=== PATIENT | male | born 1955 | race Caucasian/White ===

== ENCOUNTER 2019-03-06 15:22 | Inpatient (IN) | payer OTHER ==
[2019-03-06] MEDS ORDERED: ONDANSETRON 4 MG/2 ML VIAL IVPB ONE (15:33)
[2019-03-06] MEDS ORDERED: SODIUM CHLORIDE 1,000 ML IV ONE (15:33)
[2019-03-06] MEDS ORDERED: ONDANSETRON 4 MG/2 ML VIAL ONE (15:40)
[2019-03-06 16:04] LABS: BASO % 0.6 % (0-2.0); EOS % 1.5 % (0-4.5); HEMATOCRIT 21.5 % (35.4-49); HEMOGLOBIN 7.1 GM/dl (11.7-16.9); LYMPH % 17.9 % (8-40); MCH 29.2 pg (25.7-33.7); MCHC 32.9 g/dl (32.0-35.9); MEAN CELL VOLUME 88.7 fl (80-96); MEAN PLT VOLUME 8.9 fl (7.5-11.1); MONO % 6.8 % (3.8-10.2); NEUT % 73.2 % (42.8-82.8); PLATELET COUNT 258 K/MM3 (134-434); RBC 2.42 M/mm3 (4.00-5.60); RDW 13.1 % (11.9-15.9); WHITE BLOOD COUNT 8.7 K/mm3 (4.0-10.8)
[2019-03-06 16:13] LABS: ALBUMIN 3.6 g/dl (3.4-5.0); ALK PHOS 64 U/L (45-117); ANION GAP 10 MMOL/L (8-16); BILIRUBIN,TOTAL 0.5 mg/dl (0.2-1); BLOOD UREA NITROGEN 40 mg/dl (7-18); CALCIUM 8.6 mg/dl (8.5-10); CHLORIDE 109 mmol/L (98-107); CO2 22 mmol/L (21-32); CREATININE 1.1 mg/dl (0.55-1.3); GLUCOSE,RANDOM 126 mg/dl (74-106); MAGNESIUM 2.3 mg/dL (1.8-2.4); POTASSIUM 4.4 mmol/L (3.5-5.1); SGOT/AST 29 U/L (15-37); SGPT/ALT 44 U/L (13-61); SODIUM 141 mmol/L (136-145)
[2019-03-06 16:35] LABS: INR 1.53 (0.82-1.09)
--- NOTE | 2019-03-06 16:50 | PDOC ---
Documentation entered by Conchita Beatty SCRIBE, acting as scribe for Alessandro Estrada MD. Alessandro Estrada MD: This documentation has been prepared by the alizeibeRogerio Lincy, SCRIBE, under my direction and personally reviewed by me in its entirety. I confirm that the documentation accurately reflects all work, treatment, procedures, and medical decision making performed by me. History of Present Illness - General Chief Complaint: Vomiting/Diarrhea Stated Complaint: YESTERDAY N/V/D CHILLS History Source: Patient Exam Limitations: No Limitations - History of Present Illness Travel History: Yes (MD Lara) Initial Comments: 03/06/19 15:27 The patient is a 63-year-old male with past medical history significant for CML (in remission, on Tasigna), HTN, HLD, GERD, Afib (on Eliquis) and recent surgery for spinal fusion (February 05) presents to the emergency department with a complaint of vomiting/diarrhea on sunday night but has been feeling extremely fatigued since then with exertional sob/chest pressure. The patient reports the symptoms began Sunday night into Sunday when he in [place] visiting. The patient reports he had an onset of neck pain (to the incision site thats healing) that goes to the chest, thats pressure in quality , aggravated with swallowing, walking or deep breathing, nausea with multiple episodes of nonbloody-bilious vomiting and melanotic diarrhea. The patient described diarrhea as soft, tarry/pasty in quality. The patient reports secondary to the symptoms his has to pick him up from the hotel. The patient reports he was picked up at 2:00 pm yesterday, since then he hasnt had any episodes of diarrhea but a single episode of emesis. The patient reports since returning home hes been feeling weak and fatigue, states she had to assist him from the car into the house, and since then hes been needing assisting with going to the bathroom or standing up. The patient reports an additional concern of shortness of breath thats aggravated with the exertion of any sorts and cold sweats. The patient reports chronic left arm pain and neck pain for which he has been taking alleve almost every day for the past month. Denies discharge from the site. Denies fever, chills, headache, urinary symptoms or leg swelling. Allergies: amoxicillin, amoxicillin acid and doxycycline Social history: former smoker, with 20 pack year history, social alcohol user ( 1 wine/night), denies the use of recreational drugs. Surgical history: Appendectomy and L. elbow ORIF. PCP: Dr. Carlisle. Cardiology: Dr. Sadler Oncology: Dr. Cintron ([facility]) Past History - Past Medical History Allergies/Adverse Reactions: Allergies Allergy/AdvReac Type Severity Reaction Status Date / Time amoxicillin [From Augmentin] Allergy Intermediate Nausea Verified 03/06/19 15:30 clavulanic acid Allergy Intermediate Nausea Verified 03/06/19 15:30 [From Augmentin] doxycycline Allergy Intermediate Nausea Verified 03/06/19 15:30 nifedipine Allergy Mild Nausea Verified 03/06/19 16:51 Home Medications: Ambulatory Orders Nilotinib HCl [Tasigna] 400 mg PO BID 09/19/13 Cyclosporine [Restasis] 1 each OP DAILY 06/05/18 Hypromellose/Pf [Retaine Hpmc 0.3% Eye Drops] 1 drop OP DAILY 06/05/18 Apixaban [Eliquis -] 5 mg PO BID #60 tablet 06/06/18 Metoprolol Succinate [Toprol XL -] 25 mg PO BID #60 tab.sr.24h 06/06/18 Rosuvastatin [Crestor -] 10 mg PO DAILY #30 tablet 06/06/18 Anemia: No Asthma: No Cancer: Yes (LEUKEMIA (CML) IN REMISSION) Cardiac Disorders: No CVA: No COPD: No CHF: No Dementia: No Diabetes: No GI Disorders: Yes (GERD) Disorders: No HTN: Yes Hypercholesterolemia: Yes Liver Disease: No Seizures: No Thyroid Disease: No - Surgical History Abdominal Surgery: Yes Appendectomy: Yes Cardiac Surgery: No Cholecystectomy: No Lung Surgery: No Neurologic Surgery: No Orthopedic Surgery: Yes (FX LEFT ARM) - Suicide/Smoking/Psychosocial Hx Smoking History: Former smoker Have you smoked in the past 12 months: No Number of Cigarettes Smoked Daily: 0 If you are a former smoker, when did you quit?: 1993 Cigars Per Day: 1 Hx Alcohol Use: Yes (RARE) Drug/Substance Use Hx: No Substance Use Type: Alcohol Hx Substance Use Treatment: No Review of Systems - Review of Systems Able to Perform ROS?: Yes Comments:: 03/06/19 16:28 Constitutional - patient reports weakness and fatigue. Denies fever or chills. HEENT: denies vision changes, sore throat Respiratory: +shortness of breath. Denies cough or hemoptysis Cardiac: +chest pain, denies palpitations, lightheadedness, leg swelling Abd/GI: +nausea, vomiting, diarrhea, and melena. Denies hematochezia or abdominal pain. : denies dysuria, frequency, discharge Musculoskeletal - +neck pain and chronic left arm pain. denies back pain, joint swelling skin - denies bruising, erythema, rash neurological: denies headache, numbness, focal weakness, tingling, ataxia, weakness hematologic: denies anemia, easy bruising, easy bleeding *Physical Exam - Vital Signs Last Vital Signs Temp Pulse Resp BP Pulse Ox 97.4 F L 89 16 148/80 100 03/06/19 15:23 03/06/19 15:33 03/06/19 15:33 03/06/19 15:23 03/06/19 15:33 - Physical Exam Comments: 03/06/19 16:48 GENERAL: The patient is awake, alert, and fully oriented, Nontoxic - in no acute distress. HEAD: Normocephalic, atraumatic. EYES: extraocular movements intact, sclera anicteric, conjunctiva clear. ENT: Normal voice, Moist mucous membranes. NECK: Normal range of motion, supple without lymphadenopathy, JVD, or masses. LUNGS: Breath sounds equal, clear to auscultation bilaterally. No wheezes, no crackles, no rales. HEART: Regular rate and rhythm, normal S1 and S2 without murmur, rub or gallop. ABDOMEN: Soft, nontender, normoactive bowel sounds. No guarding, no rebound. No masses. Rectal exam: Dark colored stool. EXTREMITIES: Normal range of motion, no edema. No clubbing or cyanosis. No cords, erythema, or tenderness. NEUROLOGICAL: No facial asymmetry, Normal speech, normal gait. PSYCH: Normal mood, normal affect. SKIN: +pale appearing. Warm, Dry, normal turgor, no rashes or lesions noted. Heart Score/ECG Review - ECG Impressions Comment:: 03/06/19 16:24 Twelve-lead EKG was performed and reviewed by me. There is normal sinus rhythm with a normal rate. rate of 81 The axis is normal. The intervals are normal. There is normal R wave progression There are no ST or T wave abnormalities. Impression: Normal twelve-lead EKG ED Treatment Course - LABORATORY CBC & Chemistry Diagram: 03/06/19 15:50 03/06/19 15:50 - ADDITIONAL ORDERS Additional order review: Laboratory Results 03/06/19 15:50 Sodium 141 Potassium 4.4 Chloride 109 H Carbon Dioxide 22 Anion Gap 10 BUN 40 H Creatinine 1.1 Creat Clearance w eGFR 68.05 Random Glucose 126 H Calcium 8.6 Magnesium 2.3 Total Bilirubin 0.5 AST 29 ALT 44 Alkaline Phosphatase 64 Total Protein 6.0 L Albumin 3.6 03/06/19 15:50 RBC 2.42 L MCV 88.7 MCHC 32.9 RDW 13.1 MPV 8.9 Neutrophils % 73.2 Lymphocytes % 17.9 Monocytes % 6.8 Eosinophils % 1.5 Basophils % 0.6 - Medications Given in the ED: ED Medications Discontinued Medications Generic Name Dose Route Start Last Admin Trade Name Freq PRN Reason Stop Dose Admin Ondansetron HCl 4 mg 03/06/19 15:33 03/06/19 15:45 Zofran Injection IVPB 03/06/19 15:34 4 mg ONCE ONE Administration Medical Decision Making - Medical Decision Making 03/06/19 16:16 63y M hx of CML, HTN, HLD, GERD, AFib on eli presents with complaint of vomiting/diarrhea on sunday-sun. has since resolved but pt has been feeling extremely weak with exertional dyspnea and chest pressure. no prior hx of gib in the past. no pain currently last episode of diarrhea was sun. on exam pt in no distress abd soft notnender vitals wnl concern for possible GIB - will send labs, stool guaiac will send trop to screen for PR pts labs noted for HBG of 7.1 down from 12.7 on january 2019 - will transfuse as pt is symptmoatic w his ty and cp anticipate admissin and will dw GI 03/06/19 17:[address] Arroyo, spoke with the service, waiting for a call back from Dr. Arroyo. 03/06/16 17:[address] Arroyo. 03/06/19 17:[address] Iverson accepted to med/surg for further management of GIB wll start protonix and hold his eliquis 03/06/19 17:[address] arroyo agree with our magneemnt management. will see patient Case discussed in detail with admitting physician including history, physical exam and ancillary studies. Admitting physician has assumed care for the patient, will follow all pending diagnostics and will complete the evaluation and treatment. *DC/Admit/Observation/Transfer Diagnosis at time of Disposition: Anemia Qualifiers: Anemia type: other cause Other causes of anemia: other cause, not classified Qualified Code(s): D64.89 - Other specified anemias GIB (gastrointestinal bleeding) Qualifiers: GI bleed type/associated pathology: melena Qualified Code(s): K92.1 - Melena - Discharge Dispostion Condition at time of disposition: Stable Decision to Admit order: Yes - Referrals Referrals: Bennie Carlisle MD [Primary Care Provider] - - Patient Instructions - Post Discharge Activity
[2019-03-06] MEDS ORDERED: PANTOPRAZOLE SODIUM 80 MG in SODIUM CHLORIDE 100 ML IVPB ONE (17:12)
[2019-03-06] MEDS ORDERED: PANTOPRAZOLE SODIUM 40 MG VIAL ONE (17:17)
[2019-03-06] MEDS ORDERED: ONDANSETRON 4 MG/2 ML VIAL IVPUSH PRN (17:46)
[2019-03-06] MEDS: PANTOPRAZOLE SODIUM 80 MG in SODIUM CHLORIDE 100 ML IVPB SCH (18:00)
[2019-03-06] MEDS: SODIUM CHLORIDE 1,000 ML IV SCH (18:00)
[2019-03-06 18:29] VITALS: BMI 25.4
--- NOTE | 2019-03-06 19:45 | HP ---
CHIEF COMPLAINT: vomiting/black stools, extreme fatigue PCP: Dr. Carlisle. HISTORY OF PRESENT ILLNESS: 63-year-old male c/o generalized weakness, malaise, fatigue, black stools since this sunday morning. He also mentioned some nausea and minimal vomiting- (clear ). Patient denied any bright red blood in vomit and stool. Patient mentioned having colonoscopy performed about [address] Fields. ER course was notable for: (1) zofran (2) IV fluids (3) protonix Recent Travel: no PAST MEDICAL HISTORY: HTN, HLD, GERD, CML (in remission, on Tasigna), afib- on Eliquis , PAST SURGICAL HISTORY: appendectomy L elbow ORIF surgery for spinal fusion (February 05) Social History: Smoking: quit 20 years ago, 20pack year history Alcohol: 1 glass wine/day Drugs: pt denies Family History: father s/p CT in his 40s, alive mother in her 30s, leukemia 3 brothers and one sister alive and well Allergies amoxicillin [From Augmentin] Allergy (Intermediate, Verified 03/06/19 15:30) Nausea clavulanic acid [From Augmentin] Allergy (Intermediate, Verified 03/06/19 15:30) Nausea doxycycline Allergy (Intermediate, Verified 03/06/19 15:30) Nausea nifedipine Allergy (Mild, Verified 03/06/19 16:51) Nausea HOME MEDICATIONS: Home Medications Medication Instructions Recorded Nilotinib HCl [Tasigna] 400 mg PO BID 09/19/13 Cyclosporine [Restasis] 1 each OP DAILY 06/05/18 Hypromellose/Pf [Retaine Hpmc 0.3% 1 drop OP DAILY 06/05/18 Eye Drops] Apixaban [Eliquis -] 5 mg PO BID #60 tablet 06/06/18 Metoprolol Succinate [Toprol XL -] 25 mg PO BID #60 tab.sr.24h 06/06/18 Rosuvastatin [Crestor -] 10 mg PO DAILY #30 tablet 06/06/18 REVIEW OF SYSTEMS CONSTITUTIONAL: Absent: fever, chills, diaphoresis,, malaise, loss of appetite, weight change present- generalized weakness HEENT: Absent: rhinorrhea, nasal congestion, throat pain, throat swelling, difficulty swallowing, mouth swelling, ear pain, eye pain, visual changes CARDIOVASCULAR: Absent: chest pain, syncope, palpitations, irregular heart rate, lightheadedness , peripheral edema RESPIRATORY: Absent: cough, , orthopnea, wheezing, stridor, hemoptysis present- shortness of breath, dyspnea with exertion GASTROINTESTINAL: Absent: abdominal pain, abdominal distension, , constipation, melena, hematochezia present- nausea, vomiting, diarrhea GENITOURINARY: Absent: dysuria, frequency, urgency, hesitancy, hematuria, flank pain, genital pain MUSCULOSKELETAL: Absent: myalgia, arthralgia, joint swelling, back pain, neck pain SKIN: Absent: rash, itching, pallor HEMATOLOGIC/IMMUNOLOGIC: Absent: easy bleeding, easy bruising, lymphadenopathy, frequent infections ENDOCRINE: Absent: unexplained weight gain, unexplained weight loss, heat intolerance, cold intolerance NEUROLOGIC: Absent: headache, focal weakness or paresthesias, dizziness, unsteady gait, seizure, mental status changes, bladder or bowel incontinence PSYCHIATRIC: Absent: anxiety, depression, suicidal or homicidal ideation, hallucinations. PHYSICAL EXAMINATION Vital Signs - 24 hr 03/06/19 03/06/19 03/06/19 15:23 15:33 16:29 Temperature 97.4 F L Pulse Rate 91 H Pulse Rate [ 89 86 Apical] Respiratory 16 16 16 Rate Blood Pressure 148/80 Blood Pressure 139/64 [Right Arm] O2 Sat by Pulse 99 100 99 Oximetry (%) 03/06/19 03/06/19 03/06/19 17:00 18:15 18:25 Temperature 98.3 F 97.9 F 97.9 F Pulse Rate 78 78 Pulse Rate [ 84 Apical] Respiratory 16 18 18 Rate Blood Pressure 158/62 158/62 Blood Pressure 125/61 [Right Arm] O2 Sat by Pulse 99 100 Oximetry (%) GENERAL: Awake, alert, and fully oriented, in no acute distress. HEAD: Normal with no signs of trauma. EYES: Pupils equal, round and reactive to light, extraocular movements intact, scleral pallor+ EARS, NOSE, THROAT: Ears normal, nares patent, oropharynx clear without exudates. Moist mucous membranes. NECK: Normal range of motion, supple without lymphadenopathy, JVD, or masses. LUNGS: Breath sounds equal, clear to auscultation bilaterally. No wheezes, and no crackles. No accessory muscle use. HEART: Regular rate and rhythm, normal S1 and S2 without murmur, rub or gallop. ABDOMEN: Soft, nontender, not distended, normoactive bowel sounds, no guarding, no rebound, no masses. MUSCULOSKELETAL: Normal range of motion at all joints. No bony deformities or tenderness. No CVA tenderness. UPPER EXTREMITIES: 2+ pulses, warm, well-perfused. No cyanosis. No clubbing. No peripheral edema. LOWER EXTREMITIES: 2+ pulses, warm, well-perfused. No calf tenderness. No peripheral edema. NEUROLOGICAL: Cranial nerves II-XII intact. Normal speech. PSYCHIATRIC: Cooperative. Good eye contact. Appropriate mood and affect. SKIN: Warm, dry, normal turgor, no rashes or lesions noted, normal capillary refill. PAtient refused Rectal exam at this time. Laboratory Results - last 24 hr 03/06/19 03/06/19 03/06/19 15:50 15:50 16:20 WBC 8.7 RBC 2.42 L Hgb 7.1 L Hct 21.5 L D MCV 88.7 MCH 29.2 MCHC 32.9 RDW 13.1 Plt Count 258 MPV 8.9 Absolute Neuts (auto) 6.3 Neutrophils % 73.2 Lymphocytes % 17.9 Monocytes % 6.8 Eosinophils % 1.5 Basophils % 0.6 PT with INR INR Sodium 141 Potassium 4.4 Chloride 109 H Carbon Dioxide 22 Anion Gap 10 BUN 40 H Creatinine 1.1 Creat Clearance w eGFR 68.05 Random Glucose 126 H Calcium 8.6 Magnesium 2.3 Total Bilirubin 0.5 AST 29 ALT 44 Alkaline Phosphatase 64 Creatine Kinase Troponin I < 0.03 Total Protein 6.0 L Albumin 3.6 Stool Occult Blood Blood Type Antibody Screen Crossmatch 03/06/19 03/06/19 03/06/19 16:20 16:20 16:20 WBC RBC Hgb Hct MCV MCH MCHC RDW Plt Count MPV Absolute Neuts (auto) Neutrophils % Lymphocytes % Monocytes % Eosinophils % Basophils % PT with INR INR Sodium Potassium Chloride Carbon Dioxide Anion Gap BUN Creatinine Creat Clearance w eGFR Random Glucose Calcium Magnesium Total Bilirubin AST ALT Alkaline Phosphatase Creatine Kinase 50 Troponin I Total Protein Albumin Stool Occult Blood Positive Blood Type B POSITIVE Antibody Screen Negative Crossmatch See Detail 03/06/19 03/06/19 16:20 18:30 WBC RBC Hgb Hct MCV MCH MCHC RDW Plt Count MPV Absolute Neuts (auto) Neutrophils % Lymphocytes % Monocytes % Eosinophils % Basophils % PT with INR 17.0 H INR 1.53 H Sodium Potassium Chloride Carbon Dioxide Anion Gap BUN Creatinine Creat Clearance w eGFR Random Glucose Calcium Magnesium Total Bilirubin AST ALT Alkaline Phosphatase Creatine Kinase Troponin I Total Protein Albumin Stool Occult Blood Blood Type B POSITIVE Antibody Screen Crossmatch cxr reviewed ASSESSMENT/PLAN: #Severe symptomatic anemia- likely from upper GI bleed- positive FOBT, taking apixaban which increases chances for bleed. Patient currently hemodynamically stable. -med/surg -NPO -protonix 80mg po given -IV fluid hydration -monitor for bleed -monitor VS q4hrs -hold apixaban -avoid ASA and heparin -ordered 2 PRBC -will recheck CBC after 2nd PRBC completion -GI consulted- Dr. Fields #HTN - slightly uncontrolled -c/w home dose Toprolol for now - can titrate prn #Afib - rate controlled -will hold apixaban in light of suspected GI bleed -can c/w home dose toprolol for rate control #CML- in remission -will monitor CBC -c/w home dose Nilotinib #DVT ppx -scds Visit type - Emergency Visit Emergency Visit: Yes ED Registration Date: 03/06/19 Care time: The patient presented to the Emergency Department on the above date and was hospitalized for further evaluation of their emergent condition. - New Patient This patient is new to me today: Yes Date on this admission: 03/06/19 - Critical Care Critical Care patient: No
[2019-03-06] MEDS: morphine CARPU-JECT 2 MG/1 ML DISP.SYRIN IVPUSH PRN (20:21)
[2019-03-06] MEDS: ROSUVASTATIN CA 10 MG TABLET (FP) PO SCH (21:32)
[2019-03-06] MEDS: metoPROLOL SUCCINATE 25 MG TAB.SR.24H (FP) PO SCH (21:32)
[2019-03-06] MEDS ORDERED: NILOTINIB HCL 400 MG PO SCH (22:00)
[2019-03-07] MEDS: morphine CARPU-JECT 2 MG/1 ML DISP.SYRIN IVPUSH PRN ×2 (00:11→15:31)
[2019-03-07] MEDS: PANTOPRAZOLE SODIUM 80 MG in SODIUM CHLORIDE 100 ML IVPB SCH (06:35)
[2019-03-07 07:27] LABS: HEMATOCRIT 25.2 % (35.4-49); HEMOGLOBIN 8.2 GM/dl (11.7-16.9); MCHC 32.7 g/dl (32.0-35.9); MEAN CELL VOLUME 88.8 fl (80-96); MEAN PLT VOLUME 8.5 fl (7.5-11.1); PLATELET COUNT 169 K/MM3 (134-434); RBC 2.84 M/mm3 (4.00-5.60); RDW 13.1 % (11.9-15.9); WHITE BLOOD COUNT 5.9 K/mm3 (4.0-10.8)
[2019-03-07 07:32] LABS: ANION GAP 6 MMOL/L (8-16); BLOOD UREA NITROGEN 23 mg/dl (7-18); CALCIUM 7.7 mg/dl (8.5-10); CHLORIDE 112 mmol/L (98-107); CO2 22 mmol/L (21-32); CREATININE 0.9 mg/dl (0.55-1.3); GLUCOSE,RANDOM 110 mg/dl (74-106); POTASSIUM 3.9 mmol/L (3.5-5.1); SODIUM 140 mmol/L (136-145)
[2019-03-07] MEDS ORDERED: PATIENT'S OWN MEDICATION (NON-FORMULARY) (Cyclosporine [Restasis] 1 EACH) OP SCH (10:00)
[2019-03-07] MEDS ORDERED: ROSUVASTATIN CA 10 MG TABLET (FP) PO SCH (10:00)
--- NOTE | 2019-03-07 10:48 | PN ---
Physical Exam: SUBJECTIVE: Patient seen and examined at bedside. Feels less fatigued since blood transfusion last night. Denies pain. OBJECTIVE: Vital Signs Period Temp Pulse Resp BP Sys/Valdivia Pulse Ox Last 24 Hr 97.4 F-98.3 F 59-91 16-18 122-158/56-80 96-100 GENERAL: The patient is awake, alert, and fully oriented, in no acute distress. Weak appearing. LUNGS: Breath sounds equal, clear to auscultation bilaterally, no wheezes, no crackles, no accessory muscle use. HEART: Regular rate and rhythm, S1, S2 ABDOMEN: Soft, nontender, nondistended, normoactive bowel sounds EXTREMITIES: 2+ pulses, warm, well-perfused, no edema. NEUROLOGICAL: Cranial nerves II through XII grossly intact. Normal speech, gait not observed. Laboratory Results - last 24 hr 03/06/19 03/06/19 03/06/19 15:50 15:50 16:20 WBC 8.7 RBC 2.42 L Hgb 7.1 L Hct 21.5 L D MCV 88.7 MCH 29.2 MCHC 32.9 RDW 13.1 Plt Count 258 MPV 8.9 Absolute Neuts (auto) 6.3 Neutrophils % 73.2 Lymphocytes % 17.9 Monocytes % 6.8 Eosinophils % 1.5 Basophils % 0.6 PT with INR INR Sodium 141 Potassium 4.4 Chloride 109 H Carbon Dioxide 22 Anion Gap 10 BUN 40 H Creatinine 1.1 Creat Clearance w eGFR 68.05 Random Glucose 126 H Calcium 8.6 Magnesium 2.3 Total Bilirubin 0.5 AST 29 ALT 44 Alkaline Phosphatase 64 Creatine Kinase Troponin I < 0.03 Total Protein 6.0 L Albumin 3.6 Stool Occult Blood Blood Type Antibody Screen Crossmatch 03/06/19 03/06/19 03/06/19 16:20 16:20 16:20 WBC RBC Hgb Hct MCV MCH MCHC RDW Plt Count MPV Absolute Neuts (auto) Neutrophils % Lymphocytes % Monocytes % Eosinophils % Basophils % PT with INR INR Sodium Potassium Chloride Carbon Dioxide Anion Gap BUN Creatinine Creat Clearance w eGFR Random Glucose Calcium Magnesium Total Bilirubin AST ALT Alkaline Phosphatase Creatine Kinase 50 Troponin I Total Protein Albumin Stool Occult Blood Positive Blood Type B POSITIVE Antibody Screen Negative Crossmatch See Detail 03/06/19 03/06/19 03/07/19 16:20 18:30 07:03 WBC 5.9 RBC 2.84 L Hgb 8.2 L Hct 25.2 L D MCV 88.8 MCH 29.0 MCHC 32.7 RDW 13.1 Plt Count 169 D MPV 8.5 Absolute Neuts (auto) Neutrophils % Lymphocytes % Monocytes % Eosinophils % Basophils % PT with INR 17.0 H INR 1.53 H Sodium Potassium Chloride Carbon Dioxide Anion Gap BUN Creatinine Creat Clearance w eGFR Random Glucose Calcium Magnesium Total Bilirubin AST ALT Alkaline Phosphatase Creatine Kinase Troponin I Total Protein Albumin Stool Occult Blood Blood Type B POSITIVE Antibody Screen Crossmatch 03/07/19 03/07/19 07:03 07:55 WBC RBC Hgb Hct MCV MCH MCHC RDW Plt Count MPV Absolute Neuts (auto) Neutrophils % Lymphocytes % Monocytes % Eosinophils % Basophils % PT with INR INR Sodium 140 Potassium 3.9 Chloride 112 H Carbon Dioxide 22 Anion Gap 6 L BUN 23 H Creatinine 0.9 Creat Clearance w eGFR 85.79 Random Glucose 110 H Calcium 7.7 L Magnesium 2.0 Total Bilirubin AST ALT Alkaline Phosphatase Creatine Kinase Troponin I Total Protein Albumin Stool Occult Blood Blood Type Antibody Screen Crossmatch Active Medications Generic Name Dose Route Start Last Admin Trade Name Freq PRN Reason Stop Dose Admin Pantoprazole Sodium 80 mg/ 100 mls @ 10 mls/hr 03/06/19 17:15 03/07/19 06:35 Sodium Chloride IVPB 10 mls/hr Q10H ROBERTO CARLOS Administration 8 MG/HR Sodium Chloride 1,000 mls @ 100 mls/hr 03/06/19 18:00 03/06/19 18:00 Normal Saline - IV 100 mls/hr ASDIR ROBERTO CARLOS Administration Metoprolol Succinate 25 mg 03/06/19 22:00 03/06/19 21:32 Toprol Xl - PO 25 mg BID ROBERTO CARLOS Administration Morphine Sulfate 2 mg 03/06/19 19:53 03/07/19 00:11 Morphine Injection - IVPUSH 2 mg Q4H PRN Administration PAIN LEVEL 6-10 Non-Formulary Medication 1 each 03/07/19 10:00 Cyclosporine [Restasis] OP DAILY ROBERTO CARLOS Non-Formulary Medication 1 drop 03/07/19 10:00 Hypromellose/Pf [Retaine Hpmc 0.3% Eye Drops] OP DAILY ROBERTO CARLOS Non-Formulary Medication 400 mg 03/06/19 22:00 Nilotinib Hcl [Tasigna] PO BID ROBERTO CARLOS Ondansetron HCl 4 mg 03/06/19 17:46 Zofran Injection IVPUSH Q6H PRN NAUSEA Rosuvastatin Calcium 10 mg 03/06/19 22:00 03/06/19 21:32 Crestor - PO 10 mg HS ROBERTO CARLOS Administration ASSESSMENT/PLAN 63 year-old male with a PMH significant for HTN, HLD, atrial fibrillation on Eliquis, CML, and GERD. Admitted for upper GI bleed. Upper GI bleed --Hgb 7.1 on admission, was 12.7 on 01/17/19 --transfused 2U PRBC overnight, modest response -->Hgb 8.2 --transfuse third unit --hemodynamically stable --plan is EGD this afternoon with Dr. Fields Atrial fibrillation --rate controlled, continue Toprol XL BID --Eliquis on hold today for procedure this afternoon Hypertension --BP stable --continue Toprol XL Hyperlipidemia --continue Crestor GERD --Protonix CML --continue Tasigna, using home supply FEN Fluids: NS @ 100mL/hr Electrolytes: replete as indicated Nutrition: NPO DVT prophylaxis: SCDs; resume Eliquis after procedure Dispo: continues to require inpatient care. Full code. Visit type - Emergency Visit Emergency Visit: Yes ED Registration Date: 03/06/19 Care time: The patient presented to the Emergency Department on the above date and was hospitalized for further evaluation of their emergent condition. - New Patient This patient is new to me today: Yes Date on this admission: 03/07/19 - Critical Care Critical Care patient: No
--- NOTE | 2019-03-07 10:57 | EKG ---
Test Reason : Blood Pressure : / mmHG Vent. Rate : 081 BPM Atrial Rate : 081 BPM P-R Int : 150 ms QRS Dur : 088 ms QT Int : 382 ms P-R-T Axes : 061 027 -02 degrees QTc Int : 443 ms SINUS RHYTHM WITH MARKED SINUS ARRHYTHMIA NONSPECIFIC ST ABNORMALITY WHEN COMPARED WITH ECG OF 06-JUN-2018 04:57, NO SIGNIFICANT CHANGE WAS FOUND Confirmed by CLARK WILLIS MD ([id number]) on 03/07/2019 10:57:34 AM Referred By: JHONNY ESPINOZA Confirmed By:CLARK WILLIS MD
[2019-03-07] MEDS ORDERED: FUROSEMIDE 40 MG/4 ML INJECTABLE VIAL IVPUSH ONE (12:30)
[2019-03-07] MEDS ORDERED: PROPOFOL 20 ML ONE ×2 (13:57→14:20)
[2019-03-07] MEDS ORDERED: LIDOCAINE HCL/PF 2% SDV 5ML VIAL ONE (13:57)
[2019-03-07] MEDS ORDERED: MIDAZOLAM HCL 2 MG/2 ML SINGLE DOSE VIAL ONE (14:00)
[2019-03-07] MEDS ORDERED: EPINEPHrine 1:10,000 (P-F SYR) 1 MG/10 ML DISP.SYRIN ONE (14:18)
--- NOTE | 2019-03-07 14:27 | PN ---
Progress Note (short form) - Note Progress Note: Patient seen and chart reviewed with full consult dictated. Patient with several days of melena, increasing fatigue and weakness admitted with anemia/GI bleed. Had been on Eliquis and was using NSAIDS >6/day x 2 weeks. Started on PPI, received PRBC transfusions and for EGD this pm ??PUD Discussed with DISPENSING AUDIOLOGIST, patient/family.
--- NOTE | 2019-03-07 14:41 | PN ---
Progress Note (short form) - Note Progress Note: Upper endoscopy performed with report in chart - moderate-large DU noted in bulb with small amount of heme/oozing from edge (and ?"visible vessel"); cauterized with heater probe with good hemostasis Multiple gastric antral ulcerations also noted and biopsy taken to r/o H pylori. Rec: PPI bid (can switch to PO) Clear liquid diet Monitor CBC, vital signs Avoid ASA/ NSAIDS Hold Eliquis for 7-14 days before restarting (if indicated) Repeat EGD in 4 weeks to confirm healing Check gastric biopsy (r/o H pylori)
[2019-03-07] MEDS: metoPROLOL SUCCINATE 25 MG TAB.SR.24H (FP) PO SCH ×2 (15:29→21:30)
--- NOTE | 2019-03-07 17:15 | CON.CARD ---
Cardiology Consult (text) - Consultation Consultation Note: cc: weak/fatigue hpi: 63 m hx htn, cml, hld, pafib here weakness and fatigue.with cp. Past few days has been fatigued with mild ty as well. Also noticed dark stools. Mild n /v as well. No cp palps dizzy loc pnd orthopnea le edema. Found to have anemia with hgb 7s and egd showing DU now s/p cautery. After prbcs pt feeling better now. Sees dr dumont for cardio. pmh: per hpi psh: appendectomy social: ex tob fam: dad mi 40s ros: per hpi; all others normal meds: Home Medications Medication Instructions Recorded Nilotinib HCl [Tasigna] 400 mg PO BID 09/19/13 Cyclosporine [Restasis] 1 each OP DAILY 06/05/18 Hypromellose/Pf [Retaine Hpmc 0.3% 1 drop OP DAILY 06/05/18 Eye Drops] Apixaban [Eliquis -] 5 mg PO BID #60 tablet 06/06/18 Metoprolol Succinate [Toprol XL -] 25 mg PO BID #60 tab.sr.24h 06/06/18 Rosuvastatin [Crestor -] 10 mg PO DAILY #30 tablet 06/06/18 pe: Vital Signs Period Temp Pulse Resp BP Sys/Valdivia Pulse Ox Last 24 Hr 97.7 F-98.6 F 59-80 16-18 122-158/55-62 96-100 nad no jvd rrr s1s2 no mrg cta bl nl eff aaox3 no le e/c/c abd nt nd pos bs no jaundice diaphoresis pos dp pt no carotid bruits Current Medications Generic Name Dose Route Start Last Admin Trade Name Freq PRN Reason Stop Dose Admin Sodium Chloride 1,000 mls @ 100 mls/hr 03/06/19 18:00 03/06/19 18:00 Normal Saline - IV 100 mls/hr ASDIR ROBERTO CARLOS Administration Metoprolol Succinate 25 mg 03/06/19 22:00 03/07/19 15:29 Toprol Xl - PO Not Given BID ROBERTO CARLOS Morphine Sulfate 2 mg 03/06/19 19:53 03/07/19 15:31 Morphine Injection - IVPUSH 2 mg Q4H PRN Administration PAIN LEVEL 6-10 Non-Formulary Medication 1 each 03/07/19 10:00 Cyclosporine [Restasis] OP DAILY ROBERTO CARLOS Non-Formulary Medication 1 drop 03/07/19 10:00 Hypromellose/Pf [Retaine Hpmc 0.3% Eye Drops] OP DAILY ROBERTO CARLOS Non-Formulary Medication 400 mg 03/06/19 22:00 Nilotinib Hcl [Tasigna] PO BID ROBERTO CARLOS Ondansetron HCl 4 mg 03/06/19 17:46 Zofran Injection IVPUSH Q6H PRN NAUSEA Pantoprazole Sodium 40 mg 03/07/19 22:00 Protonix - PO BID ROBERTO CARLOS Rosuvastatin Calcium 10 mg 03/06/19 22:00 03/06/19 21:32 Crestor - PO 10 mg HS ROBERTO CARLOS Administration Laboratory Last Values WBC 5.9 K/mm3 (4.0-10.8) 03/07/19 07:03 RBC 2.84 M/mm3 (4.00-5.60) L 03/07/19 07:03 Hgb 8.2 GM/dl (11.7-16.9) L 03/07/19 07:03 Hct 25.2 % (35.4-49) L D 03/07/19 07:03 MCV 88.8 fl (80-96) 03/07/19 07:03 MCH 29.0 pg (25.7-33.7) 03/07/19 07:03 MCHC 32.7 g/dl (32.0-35.9) 03/07/19 07:03 RDW 13.1 % (11.9-15.9) 03/07/19 07:03 Plt Count 169 K/MM3 (134-434) D 03/07/19 07:03 MPV 8.5 fl (7.5-11.1) 03/07/19 07:03 Absolute Neuts (auto) 6.3 K/mm3 03/06/19 15:50 Neutrophils % 73.2 % (42.8-82.8) 03/06/19 15:50 Lymphocytes % 17.9 % (8-40) 03/06/19 15:50 Monocytes % 6.8 % (3.8-10.2) 03/06/19 15:50 Eosinophils % 1.5 % (0-4.5) 03/06/19 15:50 Basophils % 0.6 % (0-2.0) 03/06/19 15:50 PT with INR 17.0 SEC (10.2-13.0) H 03/06/19 16:20 INR 1.53 (0.82-1.09) H 03/06/19 16:20 Sodium 140 mmol/L (136-145) 03/07/19 07:03 Potassium 3.9 mmol/L (3.5-5.1) 03/07/19 07:03 Chloride 112 mmol/L (98-107) H 03/07/19 07:03 Carbon Dioxide 22 mmol/L (21-32) 03/07/19 07:03 Anion Gap 6 MMOL/L (8-16) L 03/07/19 07:03 BUN 23 mg/dl (7-18) H 03/07/19 07:03 Creatinine 0.9 mg/dl (0.55-1.3) 03/07/19 07:03 Creat Clearance w eGFR 85.79 (>60) 03/07/19 07:03 Random Glucose 110 mg/dl (74-106) H 03/07/19 07:03 Calcium 7.7 mg/dl (8.5-10) L 03/07/19 07:03 Magnesium 2.0 mg/dL (1.8-2.4) 03/07/19 07:55 Total Bilirubin 0.5 mg/dl (0.2-1) 03/06/19 15:50 AST 29 U/L (15-37) 03/06/19 15:50 ALT 44 U/L (13-61) 03/06/19 15:50 Alkaline Phosphatase 64 U/L (45-117) 03/06/19 15:50 Creatine Kinase 50 U/L (26-308) 03/06/19 16:20 Troponin I < 0.03 ng/ml (0.00-0.05) 03/06/19 16:20 Total Protein 6.0 g/dl (6.4-8.2) L 03/06/19 15:50 Albumin 3.6 g/dl (3.4-5.0) 03/06/19 15:50 Stool Occult Blood Positive (NEGATIVE) 03/06/19 16:20 Blood Type B POSITIVE 03/06/19 18:30 Antibody Screen Negative 03/06/19 16:20 Crossmatch See Detail 03/06/19 16:20 echo 06/2018: nl lv/rv no sig valve path stress echo 06/2018: no ischemic ecg/echo findings ecg: sr nl intervals no ischemic changes cxr: clear lungs a/p: 63 m hx htn, cml, hld, pafib here weakness and fatigue. anemia, UGIB: -presented with symptomatic anemia and found to have UGIB now s/p egd with cauterization of DU. -hgb improved after prbcs and pt feeling better -continue to hold eliquis for now pafib: -in sr here, cont home bb -chadsvasc warrants ac, so pt has been on eliquis but now stopped due to anemia and UGIB. GI rec's to hold for 1-2 weeks for now. Risks of resuming AC at this point seem greater than benefits so agree with holding until anemia resolves and UGIB has been stable. Will need outpt f/u with GI/cardio to decide on timing of resuming AC. htn: -controlled hld: -cont statin
[2019-03-07] MEDS: SODIUM CHLORIDE 1,000 ML IV SCH (18:00)
[2019-03-07 18:23] LABS: BASO % 0.6 % (0-2.0); HEMATOCRIT 31.8 % (35.4-49); HEMOGLOBIN 10.8 GM/dl (11.7-16.9); LYMPH % 24.4 % (8-40); MCH 30.3 pg (25.7-33.7); MCHC 33.9 g/dl (32.0-35.9); MEAN CELL VOLUME 89.4 fl (80-96); MEAN PLT VOLUME 8.9 fl (7.5-11.1); MONO % 7.5 % (3.8-10.2); NEUT % 65.5 % (42.8-82.8); PLATELET COUNT 205 K/MM3 (134-434); RBC 3.55 M/mm3 (4.00-5.60); RDW 12.8 % (11.9-15.9); WHITE BLOOD COUNT 8.6 K/mm3 (4.0-10.8)
[2019-03-07 18:31] LABS: ANION GAP 8 MMOL/L (8-16); BLOOD UREA NITROGEN 17 mg/dl (7-18); CALCIUM 8.2 mg/dl (8.5-10); CHLORIDE 109 mmol/L (98-107); CO2 20 mmol/L (21-32); CREATININE 1.1 mg/dl (0.55-1.3); GLUCOSE,RANDOM 156 mg/dl (74-106); POTASSIUM 3.8 mmol/L (3.5-5.1); SODIUM 137 mmol/L (136-145)
[2019-03-07] MEDS: ROSUVASTATIN CA 10 MG TABLET (FP) PO SCH (21:30)
[2019-03-07] MEDS: PANTOPRAZOLE 40 MG TABLET (FP) PO SCH (21:30)
[2019-03-08 06:09] VITALS: BP 154/66; PULSE 69; TEMP 97.7
--- NOTE | 2019-03-08 07:47 | CONS ---
DATE OF CONSULTATION: 03/07/2019 Asked to evaluate this 63-year-old gentleman admitted with anemia and GI bleeding. The patient is a 63-year-old gentleman with a history of hypertension, hyperlipidemia, gastroesophageal reflux, gastritis, and CML in remission. He also recently was placed on Eliquis for atrial fibrillation. He has had pain in the shoulder, for which he began taking Aleve up to 6 pills a day for 2 weeks. Several days ago, he noted darkening of the stool with some vague malaise and increasing fatigue. He presented to the emergency room with black stools and fatigue. The patient does have a history of mild gastritis in the past on an endoscopy 2-3 years ago, but no history of actual ulcer disease or GI bleeding. At the time of admission, his hemoglobin was 7.1 with hematocrit of 21.5, with an MCV of 88.7. His BUN was 40 and creatinine 1.1. His INR was 1.53. The patient has been treated with IV fluids, receiving packed red blood cells, and IV PPI therapy. He was taken off of Eliquis. He has received some blood transfusions, and his most recent hemoglobin is 8.2 and hematocrit 25.2, with a platelet count of 169 and a white count of 5.9. His repeat chemistry shows a BUN of 23 and creatinine 0.9. A third unit of packed red blood cells is currently infusing. The patient states he feels better. He denies any abdominal pain, nausea, vomiting. PHYSICAL EXAMINATION: General: He is a well-developed, slightly pale-appearing gentleman. HEENT: His conjunctivae are anicteric, but pale. Lungs: Grossly clear. Cardiac: Consistent with atrial fibrillation. Abdomen: Soft, flat, and nontender. The stool is guaiac positive. Patient with what appears to be occult GI bleeding, likely due to a combination of Eliquis and NSAIDs. He may have an underlying ulcer which is bleeding versus gastritis. Currently, he is off Eliquis, on PPI therapy, and receiving packed red blood cells. An upper endoscopy will be arranged shortly to evaluate further and rule out a bleeding ulcer. Recommendations to follow. KARL CARMEN M.D. ALYSSA/[id number]
[2019-03-08 08:31] LABS: BASO % 0.6 % (0-2.0); EOS % 2.2 % (0-4.5); HEMATOCRIT 30.4 % (35.4-49); LYMPH % 16.6 % (8-40); MCH 29.1 pg (25.7-33.7); MEAN PLT VOLUME 8.9 fl (7.5-11.1); MONO % 11.1 % (3.8-10.2); NEUT % 69.5 % (42.8-82.8); PLATELET COUNT 176 K/MM3 (134-434); RBC 3.45 M/mm3 (4.00-5.60); RDW 12.8 % (11.9-15.9); WHITE BLOOD COUNT 6.6 K/mm3 (4.0-10.8)
[2019-03-08 08:48] LABS: ALBUMIN 3.2 g/dl (3.4-5.0); ALK PHOS 57 U/L (45-117); ANION GAP 8 MMOL/L (8-16); BILIRUBIN,TOTAL 1.1 mg/dl (0.2-1); BLOOD UREA NITROGEN 15 mg/dl (7-18); CALCIUM 8.1 mg/dl (8.5-10); CHLORIDE 106 mmol/L (98-107); CO2 23 mmol/L (21-32); GLUCOSE,RANDOM 103 mg/dl (74-106); MAGNESIUM 1.9 mg/dL (1.8-2.4); POTASSIUM 3.5 mmol/L (3.5-5.1); SGOT/AST 29 U/L (15-37); SGPT/ALT 38 U/L (13-61); SODIUM 137 mmol/L (136-145); TOT PROT 5.3 g/dl (6.4-8.2)
[2019-03-08] MEDS: PANTOPRAZOLE 40 MG TABLET (FP) PO SCH (09:13)
[2019-03-08] MEDS: metoPROLOL SUCCINATE 25 MG TAB.SR.24H (FP) PO SCH (09:13)
--- NOTE | 2019-03-08 11:08 | DS ---
Physical Exam: SUBJECTIVE: Patient seen and examined, pt s/p EGD, hg stable today, Eliquis on hold, pt not take NSAIDs, follow up with Cardio and GI as outpt. tolerating liquids ready for dc this AM OBJECTIVE: Vital Signs Period Temp Pulse Resp BP Sys/Valdivia Pulse Ox Last 24 Hr 97.5 F-98.6 F 66-80 17-18 126-154/55-68 98-99 PHYSICAL EXAM GENERAL: The patient is awake, alert, and fully oriented, in no acute distress. HEAD: Normal with no signs of trauma. EYES: PERRL, extraocular movements intact, sclera anicteric, conjunctiva clear. ENT: Ears normal, nares patent, oropharynx clear without exudates, moist mucous membranes. NECK: Trachea midline, full range of motion, supple. LUNGS: Breath sounds equal, clear to auscultation bilaterally, no wheezes, no crackles, no accessory muscle use. HEART: Regular rate and rhythm, S1, S2 without murmur, rub or gallop. ABDOMEN: Soft, nontender, nondistended, normoactive bowel sounds, no guarding, no rebound, no hepatosplenomegaly, no masses. EXTREMITIES: 2+ pulses, warm, well-perfused, no edema. NEUROLOGICAL: Cranial nerves II through XII grossly intact. Normal speech, gait not observed. PSYCH: Normal mood, normal affect. SKIN: Warm, dry, normal turgor, no rashes or lesions noted. LABS Laboratory Results - last 24 hr 03/06/19 03/07/19 03/07/19 16:20 18:05 18:05 WBC 8.6 RBC 3.55 L Hgb 10.8 L Hct 31.8 L D MCV 89.4 MCH 30.3 MCHC 33.9 RDW 12.8 Plt Count 205 D MPV 8.9 Absolute Neuts (auto) 5.6 Neutrophils % 65.5 Lymphocytes % 24.4 D Monocytes % 7.5 Eosinophils % 2.0 Basophils % 0.6 Sodium 137 Potassium 3.8 Chloride 109 H Carbon Dioxide 20 L Anion Gap 8 BUN 17 Creatinine 1.1 Creat Clearance w eGFR 68.05 Random Glucose 156 H Calcium 8.2 L Magnesium 2.0 Total Bilirubin AST ALT Alkaline Phosphatase Total Protein Albumin Blood Type B POSITIVE Antibody Screen Negative Crossmatch See Detail 03/08/19 03/08/19 07:20 07:20 WBC 6.6 RBC 3.45 L Hgb 10.0 L Hct 30.4 L MCV 88.0 MCH 29.1 MCHC 33.0 RDW 12.8 Plt Count 176 MPV 8.9 Absolute Neuts (auto) 4.7 Neutrophils % 69.5 Lymphocytes % 16.6 D Monocytes % 11.1 H Eosinophils % 2.2 Basophils % 0.6 Sodium 137 Potassium 3.5 Chloride 106 Carbon Dioxide 23 Anion Gap 8 BUN 15 Creatinine 1.0 Creat Clearance w eGFR 75.97 Random Glucose 103 Calcium 8.1 L Magnesium 1.9 Total Bilirubin 1.1 H AST 29 ALT 38 Alkaline Phosphatase 57 Total Protein 5.3 L Albumin 3.2 L Blood Type Antibody Screen Crossmatch HOSPITAL COURSE: Date of Admission:03/06/19 Date of Discharge: 03/08/19 63 year-old male with a PMH significant for HTN, HLD, atrial fibrillation on Eliquis, CML, and GERD. Admitted for upper GI bleed. Upper GI bleed-resolved --Hgb 7.1 on admission, was 12.7 on 01/17/19 --transfused total 3 units --Protonix 40mg BID --hemodynamically stable --s/p EGD- moderate-large DU noted in bulb with small amount of heme/oozing from edge (and ?"visible vessel"); cauterized with heater probe with good hemostasis. Multiple gastric antral ulcerations also noted and biopsy taken to r /o H pylori. --repeat EGD in 1 month Atrial fibrillation --rate controlled, continue Toprol XL BID --Eliquis on hold x 2 weeks --follow up with cardio outpt Hypertension --BP stable --continue Toprol XL Hyperlipidemia --continue Crestor GERD --Protonix CML --continue Tasigna, using home supply Minutes to complete discharge: 30 Discharge Summary Reason For Visit: GASRTOINTESTINAL HEMORRHAGE/AFIB Current Active Problems Anemia (Acute) Gastrointestinal hemorrhage (Acute) Condition: Good - Instructions Diet, Activity, Other Instructions: Do not take Alleve, Motrin, Can take Tylenol 650mg for pain hold Eliquis x 2 weeks, follow up with Cardio and GI. Referrals: Damian Ordoñez MD [Staff Physician] - 1 Week (You need to see himin 1 week, and he will determine when you can restart your Eliquis.) Denilson Fields MD [Staff Physician] - 1 Month (Repeat EGD in 1 sunrth to confirm healing. Please call the office upon discharge to set up your appointment. The office will give you instructions as to how to prepare for your EGD) Disposition: HOME - Home Medications Comprehensive Discharge Medication List: Ambulatory Orders Nilotinib HCl [Tasigna] 400 mg PO BID 09/19/13 Cyclosporine [Restasis] 1 each OP DAILY 06/05/18 Hypromellose/Pf [Retaine Hpmc 0.3% Eye Drops] 1 drop OP DAILY 06/05/18 Metoprolol Succinate [Toprol XL -] 25 mg PO BID #60 tab.sr.24h 06/06/18 Rosuvastatin [Crestor -] 10 mg PO DAILY #30 tablet 06/06/18 Pantoprazole Sodium [Protonix -] 40 mg PO BID 30 Days #60 tablet.ec 03/08/19 This patient is new to me today: Yes Date on this admission: 03/08/19 Emergency Visit: Yes ED Registration Date: 03/06/19 Care time: The patient presented to the Emergency Department on the above date and was hospitalized for further evaluation of their emergent condition. Critical Care patient: No - Discharge Referral Referred to [facility] Med P.C.: No
--- NOTE | 2019-03-12 15:45 | PATH ---
Surgical Pathology Report Patient Name: SHAE ROSARIO Med. Rec. #: [id number] /Age/Gender: 1955 (Age: 63) / M Account: [id number] Location: [facility] MED-SURG Taken: 03/10/2019 Received: 03/10/2019 Reported: 03/12/2019 Physicians: Denilson Fields M.D. Specimen(s) Received BX ANTRUM Clinical History GI hemorrhage Postoperative diagnosis: Duodenal ulcers, gastritis, rule out H. pylori Final Diagnosis ANTRUM, BIOPSY: GASTRIC MUCOSA WITH CHRONIC GASTRITIS. IMMUNOSTAIN FOR H. PYLORI IS NEGATIVE. NEGATIVE FOR INTESTINAL METAPLASIA. Electronically Signed Angella Abdi M.D. Gross Description Received in formalin, labeled "antrum" is a sequeira, irregular portion of soft tissue measuring 0.5 cm. in greatest dimension. The specimen is submitted in toto in one cassette. /03/11/201903/11/2019
== END 2019-03-08 12:30 | disposition home or self-care (01) | DRG 378 ==
LOC: FER 15:22 → FM/S 17:14
PROVIDERS: ADMIT Internal Medicine; ATTEND Nurse Practitioner Family
PROC: 30233N1 Transfusion of Nonautologous Red Blood Cells into Peripheral Vein, Percutaneous Approach (ICD-10-PCS; 2019-03-06)
PROC: 0DB68ZX Excision of Stomach, Via Natural or Artificial Opening Endoscopic, Diagnostic (ICD-10-PCS; 2019-03-07)
PROC: 0W3P8ZZ Control Bleeding in Gastrointestinal Tract, Via Natural or Artificial Opening Endoscopic (ICD-10-PCS; principal; 2019-03-07 14:15)
DX: K25.4 Chronic or unspecified gastric ulcer with hemorrhage (principal); C92.11 Chronic myeloid leukemia, BCR/ABL-positive, in remission; I10 Essential (primary) hypertension; E78.5 Hyperlipidemia, unspecified; K21.9 Gastro-esophageal reflux disease without esophagitis; I48.91 Unspecified atrial fibrillation; D64.9 Anemia, unspecified; K29.60 Other gastritis without bleeding; I48.0 Paroxysmal atrial fibrillation; Z87.891 Personal history of nicotine dependence
CPT/HCPCS: 36415; 36430; 36511; 71045-TC-FY; 80048; 80053; 82272; 82550; 83735; 84484; 85025; 85027; 85610; 86900; 86922; 88305-TC; 93005; 99285-25; J7030; P9038; P9058

== ENCOUNTER 2019-04-14 08:27 | Day surgery (SDC) | payer OTHER | END 2019-04-14 10:15 | disposition home or self-care (01) | LOC: FASU-ENDO 08:27 ==

== ENCOUNTER 2019-08-05 12:10 | Emergency (ER) | payer OTHER ==
--- NOTE | 2019-08-05 12:20 | PDOC ---
History of Present Illness - General Chief Complaint: Pain Stated Complaint: left leg swelling and pain Time Seen by Provider: 08/05/19 12:15 History Source: Patient Exam Limitations: No Limitations - History of Present Illness Initial Comments: 08/05/19 13:18 Genaro Olson is a 64yM w PMHx CML on chemotherapy, HTN, HLD, GERD, GI ulcers, Afib (on Eliquis) presenting with L leg swelling and pain. Started having L ankle pain and swelling 4 weeks ago, subsequent addition of L popliteal fossa pain radiating down leg 2 weeks ago worsened w movement and exacerbated over last 4 days. No trauma or recent surgery. Pt went on 4 hr car trip this past weekend but symptoms precede trip. Able to ambulate per baseline. Pt describes pain similar to prior sciatica episodes. PCP concerned that amlodipine causing swelling, sent to ED for further evaluation. Denies fever, headache, nausea/ vomiting, SOB, chest/AB pain, AB swelling, urinary/bowel movement changes. Past History - Travel Traveled outside of the country in the last 30 days: No Close contact w/someone who was outside of country & ill: No - Past Medical History Allergies/Adverse Reactions: Allergies Allergy/AdvReac Type Severity Reaction Status Date / Time clavulanic acid Allergy Intermediate Nausea Verified 08/05/19 12:11 [From Augmentin] doxycycline Allergy Intermediate Nausea Verified 08/05/19 12:11 nifedipine Allergy Mild Nausea Verified 08/05/19 12:11 Home Medications: Ambulatory Orders Nilotinib HCl [Tasigna] 400 mg PO BID 09/19/13 Cyclosporine [Restasis] 1 each OU DAILY 06/05/18 Hypromellose/Pf [Retaine Hpmc 0.3% Eye Drops] 1 drop OU PRN PRN 06/05/18 Metoprolol Succinate [Toprol XL -] 25 mg PO BID #60 tab.sr.24h 06/06/18 Rosuvastatin [Crestor -] 10 mg PO DAILY #30 tablet 06/06/18 Pantoprazole Sodium [Protonix -] 40 mg PO BID 30 Days #60 tablet.ec 03/08/19 [place]-3 Fatty Acids/Fish Oil [Fish Oil 1,000 mg Capsule] 1 cap PO DAILY Amlodipine Besylate [Norvasc -] 5 mg PO DAILY 08/05/19 Apixaban [Eliquis] 5 mg PO BID 08/05/19 Anemia: No Asthma: No Cancer: Yes (LEUKEMIA (CML)DX IN 2009- IN REMISSION) Cardiac Disorders: No CVA: No COPD: No CHF: No Dementia: No Diabetes: No GI Disorders: Yes (HX GASTRIC ULCER) Disorders: No HTN: Yes Hypercholesterolemia: Yes Liver Disease: No Seizures: No Thyroid Disease: No - Surgical History Abdominal Surgery: Yes (SEE BELOW) Appendectomy: Yes (OPEN-30 YRS AGO) Cardiac Surgery: No Cholecystectomy: No Lung Surgery: No Neurologic Surgery: No Orthopedic Surgery: Yes (FX REPAIR LEFT ARM) - Psycho Social/Smoking Cessation Hx Smoking History: Former smoker Have you smoked in the past 12 months: No Number of Cigarettes Smoked Daily: 20 If you are a former smoker, when did you quit?: 1992 Cigars Per Day: 1 Hx Alcohol Use: Yes (1 GLASS WINE DAILY) Drug/Substance Use Hx: No Substance Use Type: Alcohol Hx Substance Use Treatment: No Review of Systems - Review of Systems Able to Perform ROS?: Yes Constitutional: No: Chills, Fever HEENTM: No: Eye Pain, Nose Pain, Throat Pain, Mouth Pain Respiratory: No: Cough, Shortness of Breath Cardiac (ROS): No: Chest Pain, Palpitations, Syncope ABD/GI: No: Abdominal Distended, Constipated, Diarrhea, Nausea, Vomiting : No: Burning, Dysuria, Discharge, Frequency, Flank Pain, Hematuria Musculoskeletal: Yes: Joint Pain (L ankle), Joint Swelling (L ankle). No: Back Pain, Muscle Pain Integumentary: No: Bruising, Dryness, Erythema Neurological: No: Headache, Numbness, Seizure, Tingling, Tremors Psychiatric: No: Anxiety, Depression, Stressors Endocrine: No: Excessive Sweating, Flushing, Intolerance to Cold, Intolerance to Heat Hematologic/Lymphatic: No: Anemia, Blood Clots *Physical Exam - Physical Exam General Appearance: Yes: Nourished, Appropriately Dressed. No: Apparent Distress HEENT: positive: EOMI, RENÉE, Normal Voice, Hearing Grossly Normal. negative: Scleral Icterus (R), Scleral Icterus (L), Nasal Congestion, Rhinorrhea Respiratory/Chest: positive: Lungs Clear, Normal Breath Sounds. negative: Chest Tender, Respiratory Distress, Crackles, Rales, Rhonchi, Stridor, Wheezing Cardiovascular: positive: Regular Rhythm, S1, S2, Bradycardia. negative: Murmur Vascular Pulses: Dorsalis-Pedis (R): 3+, Doralis-Pedis (L): 3+ Gastrointestinal/Abdominal: positive: Normal Bowel Sounds, Flat, Soft. negative : Tender, Organomegaly Musculoskeletal: negative: CVA Tenderness (R), CVA Tenderness (L) Extremity: positive: Normal Capillary Refill, Tender (moderately tender L popliteal fossa, L medial mallelous), Swelling (+1 edema to L mid tib/fib), Other (no open wounds/lacerations on L leg, normal sensation.) Integumentary: positive: Normal Color. negative: Warm, Jaundice, Petechiae, Rash, Ecchymosis, Bruising Neurologic: positive: Fully Oriented, Alert, Normal Response, Responsive. negative: Motor Strength 5/5 (3/5 left / 5/5 right hip flexion. 5/5 dorsi/ plantarflexion bilaterally), Numbness, Sensory Deficit, Confused, Disoriented ED Treatment Course - LABORATORY CBC & Chemistry Diagram: 08/05/19 13:30 08/05/19 13:30 Medical Decision Making - Medical Decision Making 08/05/19 12:45 CBC CMP normal L leg duplex US -no DVT L ankle/foot XR did not show fracture, dislocation Genaro Olson is a 64yM w PMHx CML on chemotherapy, HTN, HLD, GERD, GI ulcers, Afib (on Eliquis) presenting with 1 month of L leg swelling and pain. No evidence of DVT on duplex US. Unlikely cellulitis with normal WBC and afebrile. Unlikely lymphedema d/t low risk of new symptoms with pt being on chemotherapy for last 10 years. L ankle/foot XR did not show fracture or dislocation. Pt able to ambulate without assistance. D/c home w PCP f/u, RICE care instructions , come back to ED in 1-2 weeks if leg unchanged for repeat US. Discharge - Discharge Information Problems reviewed: Yes Clinical Impression/Diagnosis: Left leg swelling, Left leg pain Condition: Stable Disposition: HOME - Admission No - Follow up/Referral Referrals: Bennie Carlisle MD [Primary Care Provider] - - Patient Discharge Instructions Patient Printed Discharge Instructions: DI for Leg Pain Additional Instructions: You were seen for left leg pain and swelling. Your labs and imaging do not show anything concerning. Please follow up with your primary care doctor and oncologist regarding your leg pain/swelling within the next few days. Rest, elevate, wear compression stockings, and ice your leg if you continue to have pain and swelling. Come back to the ED in 1-2 weeks if your leg does not change. Come back immediately if you have chest pain or shortness of breath. - Post Discharge Activity
[2019-08-05 12:23] VITALS: TEMP 98.1; BMI 26.6
[2019-08-05 14:03] LABS: INR 1.68 (0.82-1.09); PROTHROMBIN TIME (PATIENT) 18.6 SEC (10.2-13.0)
[2019-08-05 14:07] LABS: BASO % 0.6 % (0-2.0); EOS % 1.4 % (0-4.5); HEMOGLOBIN 12.1 GM/dl (11.7-16.9); LYMPH % 18.8 % (8-40); MCH 28.1 pg (25.7-33.7); MCHC 32.7 g/dl (32.0-35.9); MEAN PLT VOLUME 9.1 fl (7.5-11.1); MONO % 8.4 % (3.8-10.2); NEUT % 70.8 % (42.8-82.8); PLATELET COUNT 241 K/MM3 (134-434); RDW 13.5 % (11.9-15.9); WHITE BLOOD COUNT 7.3 K/mm3 (4.0-10.8)
[2019-08-05 14:11] LABS: ALBUMIN 4.4 g/dl (3.4-5.0); BILIRUBIN,TOTAL 1.8 mg/dl (0.2-1); CALCIUM 8.6 mg/dl (8.5-10); CREATININE 1.2 mg/dl (0.55-1.3); POTASSIUM 4.3 mmol/L (3.5-5.1); TOT PROT 7.3 g/dl (6.4-8.2)
--- NOTE | 2019-08-05 15:32 | PDOC ---
Attending Attestation - Resident Resident Name: MicKrishna - ED Attending Attestation I have performed the following: I have examined & evaluated the patient, The case was reviewed & discussed with the resident, I agree w/resident's findings & plan, Exceptions are as noted - HPI HPI: 08/05/19 15:39 64yM w PMHx CML on chemotherapy, HTN, HLD, GERD, GI ulcers, Afib (on Eliquis) presenting with L leg swelling and pain. Started having L ankle pain and swelling 4 weeks ago - Physicial Exam PE: 08/05/19 15:39 Vitals: Triage Vital signs reviewed General Appearance: no acute distress, well nourished well developed, Head: Atraumatic, Neck: Supple;No Nucal rigidity Chest Wall: Nontender Cardiac: Regular rate and rhythym, no murmurs, no rubs, no gallops, Lungs: Clear to auscultation bilateral, good air movement bilaterally, Abdomen: Soft, non distended, normal bowel sounds, non tender to palpation Extremities: Full range of motion to all extremities, no cyanosis, clubbing, mild swelling and tenderness to right anlke, no warmth no cellulitis, no significant calf discomfort Skin: Warm and dry, no rashes or lesions, no rash, no petechiae Neuro: Strength intact to all extremities, Sensation intact to all extremities, gait normal Psych: normal mood, normal affect - Medical Decision Making 08/05/19 15:41 CML on chemotherapy presents with one-month history of left ankle and mild calf discomfort Sent to ED for ultrasound Blood work x-ray unremarkable's ultrasound demonstrates no acute DVT. Recommend rest elevation compression stockings he will need to follow up with his primary care provider this week he will need a repeat ultrasound in 1-2 weeks if no resolution of symptoms Findings, the need for follow-up and strict return instructions discussed with patient.
[2019-08-05 15:51] VITALS: BP 152/80; PULSE 78
== END 2019-08-05 15:48 | disposition home or self-care (01) ==
LOC: SUPCPDRO 12:10 → FER 12:10
DX: M79.605 Pain in left leg (principal); M79.89 Other specified soft tissue disorders; C92.10 Chronic myeloid leukemia, BCR/ABL-positive, not having achieved remission; I10 Essential (primary) hypertension; E78.5 Hyperlipidemia, unspecified; K21.9 Gastro-esophageal reflux disease without esophagitis; I48.91 Unspecified atrial fibrillation; Z79.01 Long term (current) use of anticoagulants; K25.9 Gastric ulcer, unspecified as acute or chronic, without hemorrhage or perforation; Z92.21 Personal history of antineoplastic chemotherapy; Z88.8 Allergy status to other drugs, medicaments and biological substances
CPT/HCPCS: 36415; 73610-TC-LT-FY; 73630-TC-LT; 80053; 85025; 85610; 85730; 93971-TC; 99283-25

== ENCOUNTER 2021-01-31 17:02 | Inpatient (IN) | payer OTHER ==
[2021-01-31] MEDS ORDERED: PANTOPRAZOLE SODIUM 40 MG VIAL IVPUSH ONE (17:29)
[2021-01-31 17:35] LABS: HEMATOCRIT 23.1 % (35.4-49); HEMOGLOBIN 7.8 GM/dl (11.7-16.9); MCH 30.3 pg (25.7-33.7); MCHC 33.6 g/dl (32.0-35.9); MEAN CELL VOLUME 90.3 fl (80-96); MEAN PLT VOLUME 9.1 fl (7.5-11.1); PLATELET COUNT 266 K/MM3 (134-434); RBC 2.56 M/mm3 (4.00-5.60); RDW 13.3 % (11.9-15.9); WHITE BLOOD COUNT 14.5 K/mm3 (4.0-10.8)
[2021-01-31] MEDS ORDERED: PANTOPRAZOLE SODIUM 40 MG VIAL ONE (17:41)
[2021-01-31] MEDS: PANTOPRAZOLE SODIUM 80 MG in SODIUM CHLORIDE 100 ML IVPB SCH (17:51)
[2021-01-31 17:53] LABS: ACTIVATED PTT 21.4 SECONDS (25.2-36.5)
[2021-01-31 17:55] LABS: ALBUMIN 4.3 g/dl (3.4-5.0); ALK PHOS 47 U/L (45-117); ANION GAP 7 MMOL/L (8-16); BILIRUBIN,TOTAL 0.6 mg/dl (0.2-1); CALCIUM 9.1 mg/dl (8.5-10); CHLORIDE 109 mmol/L (98-107); CO2 22 mmol/L (21-32); CREATININE 1.7 mg/dl (0.55-1.3); GLUCOSE,RANDOM 104 mg/dl (74-106); POTASSIUM 5.2 mmol/L (3.5-5.1); SGOT/AST 28 U/L (15-37); SGPT/ALT 44 U/L (13-61); SODIUM 138 mmol/L (136-145); TOT PROT 7.2 g/dl (6.4-8.2)
[2021-01-31 17:57] LABS: INR 1.07 (0.82-1.09); PROTHROMBIN TIME (PATIENT) 11.9 SEC (10.2-13.0)
[2021-01-31 18:23] LABS: PLATELET ESTIMATE ADEQUATE
[2021-01-31 22:18] VITALS: BMI 25.7
[2021-02-01] MEDS: PANTOPRAZOLE SODIUM 80 MG in SODIUM CHLORIDE 100 ML IVPB SCH ×2 (03:32→13:50)
[2021-02-01 05:10] LABS: BASO % 0.1 % (0-2.0); EOS % 0.4 % (0-4.5); HEMATOCRIT 24.4 % (35.4-49); HEMOGLOBIN 8.5 GM/dL (11.7-16.9); LYMPH % 22.4 % (8-40); MCH 31.2 pg (25.7-33.7); MCHC 34.7 g/dl (32.0-35.9); MEAN CELL VOLUME 89.8 fl (80-96); MEAN PLT VOLUME 8.8 fl (7.5-11.1); MONO % 8.4 % (3.8-10.2); NEUT % 68.7 % (42.8-82.8); PLATELET COUNT 178 K/MM3 (134-434); RBC 2.71 M/mm3 (4.00-5.60); RDW 13.7 % (11.9-15.9); WHITE BLOOD COUNT 8.8 K/mm3 (4.0-10.0)
[2021-02-01] MEDS ORDERED: DEXTROSE 5%-0.45% SALINE 1,000 ML IV SCH ×3 (06:15→12:01)
[2021-02-01 06:32] LABS: ANISOCYTOSIS 1+; MACROCYTOSIS 0; PLATELET ESTIMATE NORMAL
[2021-02-01 07:49] LABS: BASO % 0.4 % (0-2.0); EOS % 0.9 % (0-4.5); HEMATOCRIT 25.1 % (35.4-49); HEMOGLOBIN 8.3 GM/dl (11.7-16.9); LYMPH % 25.5 % (8-40); MEAN CELL VOLUME 90.9 fl (80-96); MEAN PLT VOLUME 8.7 fl (7.5-11.1); MONO % 8.4 % (3.8-10.2); NEUT % 64.8 % (42.8-82.8); PLATELET COUNT 160 K/MM3 (134-434); RBC 2.76 M/mm3 (4.00-5.60); RDW 13.1 % (11.9-15.9); WHITE BLOOD COUNT 7.2 K/mm3 (4.0-10.8)
[2021-02-01 07:56] LABS: ALBUMIN 3.6 g/dl (3.4-5.0); BILIRUBIN,TOTAL 0.8 mg/dl (0.2-1); CALCIUM 8.7 mg/dl (8.5-10); CREATININE 1.4 mg/dl (0.55-1.3); POTASSIUM 4.7 mmol/L (3.5-5.1); TOT PROT 5.9 g/dl (6.4-8.2)
[2021-02-01] MEDS ORDERED: NILOTINIB HCL 200 MG PO SCH (10:00)
[2021-02-01] MEDS: metoPROLOL SUCCINATE 25 MG TAB.SR.24H (FP) PO SCH ×2 (10:10→21:26)
[2021-02-01 11:14] LABS: HEMOGLOBIN 8.9 GM/dl (11.7-16.9); MCH 30.1 pg (25.7-33.7); MCHC 33.2 g/dl (32.0-35.9); MEAN CELL VOLUME 90.8 fl (80-96); MEAN PLT VOLUME 7.7 fl (7.5-11.1); PLATELET COUNT 169 K/MM3 (134-434); RBC 2.97 M/mm3 (4.00-5.60); RDW 13.3 % (11.9-15.9); WHITE BLOOD COUNT 6.4 K/mm3 (4.0-10.8)
[2021-02-01] MEDS: RAMIPRIL 5 MG CAPSULE PO SCH ×2 (12:07→21:26)
[2021-02-01] MEDS ORDERED: PT OWN MED DRAWER 7, Y5N ONE (17:39)
[2021-02-01] MEDS ORDERED: ACETAMINOPHEN 325 MG TABLET (FP) PO ONE (21:06)
[2021-02-02] MEDS: PANTOPRAZOLE SODIUM 80 MG in SODIUM CHLORIDE 100 ML IVPB SCH (02:10)
[2021-02-02 05:38] VITALS: TEMP 97.8
[2021-02-02 07:35] LABS: BASO % 0.6 % (0-2.0); EOS % 2.5 % (0-4.5); HEMATOCRIT 26.2 % (35.4-49); HEMOGLOBIN 8.7 GM/dl (11.7-16.9); LYMPH % 27.3 % (8-40); MCH 29.9 pg (25.7-33.7); MCHC 33.2 g/dl (32.0-35.9); MEAN CELL VOLUME 90.2 fl (80-96); MEAN PLT VOLUME 8.1 fl (7.5-11.1); MONO % 10.9 % (3.8-10.2); NEUT % 58.7 % (42.8-82.8); PLATELET COUNT 155 K/MM3 (134-434); RBC 2.91 M/mm3 (4.00-5.60); RDW 12.6 % (11.9-15.9); WHITE BLOOD COUNT 6.5 K/mm3 (4.0-10.8)
[2021-02-02 07:55] LABS: ALBUMIN 3.4 g/dl (3.4-5.0); BILIRUBIN,TOTAL 0.6 mg/dl (0.2-1); CALCIUM 8.6 mg/dl (8.5-10); CREATININE 1.2 mg/dl (0.55-1.3); POTASSIUM 4.5 mmol/L (3.5-5.1); TOT PROT 5.5 g/dl (6.4-8.2)
[2021-02-02 08:03] VITALS: PULSE 62
[2021-02-02] MEDS ORDERED: LIDOCAINE HCL/PF 2% SDV 5ML VIAL ONE (08:10)
[2021-02-02 08:11] LABS: MAGNESIUM 2.4 mg/dL (1.8-2.4)
[2021-02-02] MEDS ORDERED: PROPOFOL 20 ML ONE (08:11)
[2021-02-02] MEDS: RAMIPRIL 5 MG CAPSULE PO SCH (09:21)
[2021-02-02] MEDS: metoPROLOL SUCCINATE 25 MG TAB.SR.24H (FP) PO SCH (09:22)
[2021-02-02 09:32] VITALS: BP 137/51
== END 2021-02-02 16:48 | disposition home or self-care (01) | DRG 378 ==
LOC: FER 17:02 → FM/S 18:56
PROVIDERS: ADMIT Internal Medicine; ATTEND Nurse Practitioner Acute Care
PROC: 30233N1 Transfusion of Nonautologous Red Blood Cells into Peripheral Vein, Percutaneous Approach (ICD-10-PCS; 2021-01-31)
PROC: 0DB68ZX Excision of Stomach, Via Natural or Artificial Opening Endoscopic, Diagnostic (ICD-10-PCS; principal; 2021-02-02 08:55)
DX: K26.4 Chronic or unspecified duodenal ulcer with hemorrhage (principal); C92.10 Chronic myeloid leukemia, BCR/ABL-positive, not having achieved remission; D62 Acute posthemorrhagic anemia; I10 Essential (primary) hypertension; K92.1 Melena; E78.5 Hyperlipidemia, unspecified; K21.9 Gastro-esophageal reflux disease without esophagitis; I48.91 Unspecified atrial fibrillation; I25.10 Atherosclerotic heart disease of native coronary artery without angina pectoris; I73.9 Peripheral vascular disease, unspecified; K29.70 Gastritis, unspecified, without bleeding; Z95.5 Presence of coronary angioplasty implant and graft
CPT/HCPCS: 36415; 36430; 71045-TC-FY; 80053; 82272; 82550; 83735; 84484; 85025; 85027; 85610; 85730; 86850; 86900; 86901; 86922; 88305-TC; 93005; 99291; C9803; P9038; P9058; U0003; U0005